=== PATIENT | female | born 1955 | race Caucasian/White ===

== ENCOUNTER 2016-10-08 14:05 | Emergency (ER) | payer SELFPAY ==
[~2016-10-08] VITALS: Ht 175.3 cm; Wt 72.0 kg
[~2016-10-08 14:05] MED LIST: ENOX40P SQ; OXYC-360 PO
[2016-10-08 14:21] VITALS: BP 131/72; PULSE 74; RESP 16; TEMP 98.5; O2SAT 98
[2016-10-08] MEDS ORDERED: SODIUM CHLOR 0.9% 1000 ML INJ 1,000 ML IV SCH (14:36)
--- NOTE | 2016-10-08 14:44 | PD ---
HPI Chief Complaint: GI Complaint Time Seen by Provider: 14:26 Travel History International Travel<30 days: No Contact w/Intl Traveler<30days: No Traveled to known affect area: No History of Present Illness HPI The patient is a 61-year-old female who presents emergency department for diarrhea and weight loss. The patient states in May she waited 186, today she waited 158 pounds. The patient states over the last month she's had diarrhea which she describes as loose, watery, brown, with one episode of bright red blood on toilet paper earlier today. She denies any nausea or vomiting, does note a change in diet secondary to her diarrhea. The patient denies any significant abdominal pain or cramping. The patient does have a history tobacco use, but denies any chronic cough or shortness of breath. The patient denies any previous history of cancer. The patient does not currently have a primary physician. The patient's symptoms are moderate without any known alleviating or exacerbating factors. She denies any history of C. difficile. The patient denies any recent antibiotic use. The patient denies any recent international travel. PFSH Past Medical History Arthritis: Yes Autoimmune Disease: No Depression: Yes Cancer: No Cardiovascular Problems: No Diabetes: No Diminished Hearing: No Endocrine: No Gastrointestinal Disorders: Yes Genitourinary: No Hiatal Hernia: Yes Musculoskeletal: Yes Neurologic: Yes Respiratory: No ?: Not Past Surgical History Gynecologic Surgery: Yes (TUBAL LIGATION) Other Surgery: Yes Social History Alcohol Use: Yes (DAILY) Tobacco Use: Yes (8 CIGS PER DAY) Substance Use: No Allergies-Medications (Allergen,Severity, Reaction): Coded Allergies: Sulfa (Verified Allergy, Severe, RASH, 10/08/16) Tramadol (Verified Adverse Reaction, Severe, Headache, 10/08/16) Reported Meds & Prescriptions Reported Meds & Active Scripts Active No Active Prescriptions or Reported Medications Review of Systems Except as stated in HPI: all other systems reviewed are Neg General / Constitutional: Positive: Weight Loss, No: Fever Cardiovascular: No: Chest Pain or Discomfort Respiratory: No: Shortness of Breath Gastrointestinal: Positive: Diarrhea, No: Nausea, Vomiting, Abdominal Pain Musculoskeletal: No: Myalgias, Weakness Skin: No Rash Neurologic: No: Weakness, Dizziness Physical Exam Narrative GENERAL: Awake, alert, pleasant 61-year-old female who appears her stated age and is in no acute respiratory distress. SKIN: Warm and dry. HEAD: Atraumatic. Normocephalic. EYES: Pupils equal and round. No scleral icterus. No injection or drainage. ENT: No nasal bleeding or discharge. Mucous membranes pink and moist. NECK: Trachea midline. No JVD. CARDIOVASCULAR: Regular rate and rhythm. No murmur appreciated. RESPIRATORY: No accessory muscle use. Clear to auscultation. Breath sounds equal bilaterally. GASTROINTESTINAL: Abdomen soft, non-tender, nondistended. No rebound tenderness. Rectal: The exam was performed in the presence of a female nurse. External examination reveals no hemorrhoids or visible fissures. Digital exam reveals no gross blood. Guaiac negative. MUSCULOSKELETAL: No obvious deformities. No clubbing. No cyanosis. No edema. NEUROLOGICAL: Awake and alert. No obvious cranial nerve deficits. Motor grossly within normal limits. Normal speech. PSYCHIATRIC: Appropriate mood and affect; insight and judgment normal. Data Data Last Documented VS Vital Signs Date Time Temp Pulse Resp B/P Pulse Ox O2 Delivery O2 Flow Rate FiO2 10/08/16 15:34 72 15 132/68 10/08/16 14:45 98 Room Air 10/08/16 14:21 98.5 Orders Complete Blood Count With Diff (10/08/16 14:36) Comprehensive Metabolic Panel (10/08/16 14:36) Lipase (10/08/16 14:36) Ct Abd/Pel W/O Iv Contrast (10/08/16 14:36) Iv Access Insert/Monitor (10/08/16 14:36) Ecg Monitoring (10/08/16 14:36) Oximetry (10/08/16 14:36) Sodium Chlor 0.9% 1000 Ml Inj (Ns 1000 M (10/08/16 14:36) Sodium Chloride 0.9% Flush (Ns Flush) (10/08/16 14:45) Chest, Single Ap (10/08/16 14:36) Labs Laboratory Tests Test 10/08/16 14:40 White Blood Count 5.3 TH/MM3 Red Blood Count 4.33 MIL/MM3 Hemoglobin 13.0 GM/DL Hematocrit 37.8 % Mean Corpuscular Volume 87.3 FL Mean Corpuscular Hemoglobin 30.1 PG Mean Corpuscular Hemoglobin 34.5 % Concent Red Cell Distribution Width 12.1 % Platelet Count 337 TH/MM3 Mean Platelet Volume 7.0 FL Neutrophils (%) (Auto) 58.4 % Lymphocytes (%) (Auto) 28.6 % Monocytes (%) (Auto) 10.5 % Eosinophils (%) (Auto) 1.9 % Basophils (%) (Auto) 0.6 % Neutrophils # (Auto) 3.1 TH/MM3 Lymphocytes # (Auto) 1.5 TH/MM3 Monocytes # (Auto) 0.6 TH/MM3 Eosinophils # (Auto) 0.1 TH/MM3 Basophils # (Auto) 0.0 TH/MM3 CBC Comment DIFF FINAL Differential Comment Sodium Level 138 MEQ/L Potassium Level 3.6 MEQ/L Chloride Level 102 MEQ/L Carbon Dioxide Level 29.0 MEQ/L Anion Gap 7 MEQ/L Blood Urea Nitrogen 9 MG/DL Creatinine 0.75 MG/DL Estimat Glomerular Filtration 79 ML/MIN Rate Random Glucose 92 MG/DL Calcium Level 9.5 MG/DL Total Bilirubin 0.2 MG/DL Aspartate Amino Transf 16 U/L (AST/SGOT) Alanine Aminotransferase 27 U/L (ALT/SGPT) Alkaline Phosphatase 51 U/L Total Protein 7.2 GM/DL Albumin 3.7 GM/DL Lipase 97 U/L [facility] Medical Decision Making Medical Screen Exam Complete: Yes Emergency Medical Condition: Yes Medical Record Reviewed: Yes Interpretation(s) Laboratory Tests Test 10/08/16 14:40 White Blood Count 5.3 TH/MM3 Red Blood Count 4.33 MIL/MM3 Hemoglobin 13.0 GM/DL Hematocrit 37.8 % Mean Corpuscular Volume 87.3 FL Mean Corpuscular Hemoglobin 30.1 PG Mean Corpuscular Hemoglobin 34.5 % Concent Red Cell Distribution Width 12.1 % Platelet Count 337 TH/MM3 Mean Platelet Volume 7.0 FL Neutrophils (%) (Auto) 58.4 % Lymphocytes (%) (Auto) 28.6 % Monocytes (%) (Auto) 10.5 % Eosinophils (%) (Auto) 1.9 % Basophils (%) (Auto) 0.6 % Neutrophils # (Auto) 3.1 TH/MM3 Lymphocytes # (Auto) 1.5 TH/MM3 Monocytes # (Auto) 0.6 TH/MM3 Eosinophils # (Auto) 0.1 TH/MM3 Basophils # (Auto) 0.0 TH/MM3 CBC Comment DIFF FINAL Differential Comment Sodium Level 138 MEQ/L Potassium Level 3.6 MEQ/L Chloride Level 102 MEQ/L Carbon Dioxide Level 29.0 MEQ/L Anion Gap 7 MEQ/L Blood Urea Nitrogen 9 MG/DL Creatinine 0.75 MG/DL Estimat Glomerular Filtration 79 ML/MIN Rate Random Glucose 92 MG/DL Calcium Level 9.5 MG/DL Total Bilirubin 0.2 MG/DL Aspartate Amino Transf 16 U/L (AST/SGOT) Alanine Aminotransferase 27 U/L (ALT/SGPT) Alkaline Phosphatase 51 U/L Total Protein 7.2 GM/DL Albumin 3.7 GM/DL Lipase 97 U/L CT of the abdomen and pelvis reveals small fat containing umbilical hernia. Otherwise, negative noncontrast CT abdomen/pelvis. Differential Diagnosis Differential diagnosis includes colitis, enteritis, colon cancer, pancreatic cancer, interval bowel syndrome, lung cancer, dehydration. Narrative Course IV was established, labs are drawn and sent, and the patient was placed on cardiac telemetry monitoring and continuous pulse oximetry monitoring. Rectal exam was performed, no gross blood, guaiac negative. CT of the abdomen and pelvis was ordered to rule out obvious mass. Laboratory evaluation is unremarkable. Chest x-rays negative. CT of the abdomen and pelvis is negative , no evidence of mass or apple core lesion. The patient is advised to follow- up with gastroenterology, she may benefit from outpatient follow-up and possible colonoscopy. Patient is stable for outpatient follow-up. [facility] Point of Care Internal Pos. & Neg. Controls: Passed Fecal Specimen Occult Blood: Negative Diagnosis Primary Impression: Diarrhea Qualified Code: R19.7 - Diarrhea, unspecified type Additional Impression: Weight loss Patient Instructions: General Instructions Additional Instructions: Please provide the patient a copy of her CT results and lab results at discharge. Follow-up with gastroenterology for outpatient follow-up and possible endoscopy/colonoscopy. Med/Other Pt SpecificInfo: No Change to Meds Scripts No Active Prescriptions or Reported Meds Disposition: 01 DISCHARGE HOME Condition: Stable Lowell Brooke MD Oct 08, 2016 14:44
[2016-10-08 14:45] VITALS: O2SAT 98
[2016-10-08] MEDS ORDERED: SODIUM CHLORIDE 0.9% FLUSH 5 ML FLUSH IVF PRN (14:45)
[2016-10-08 14:46] LABS: AUTOMATED NEUTROPHIL # 3.1 TH/MM3 (1.8-7.7); BASOPHIL % 0.6 % (0.0-2.0); EOSINOPHIL # 0.1 TH/MM3 (0-0.4); EOSINOPHIL % 1.9 % (0.0-4.0); HEMATOCRIT 37.8 % (35.0-46.0); HEMO FLAGS DIFF FINAL; LYMPH % 28.6 % (9.0-44.0); LYMPHOCYTE # 1.5 TH/MM3 (1.0-4.8); MEAN CELL VOLUME 87.3 FL (80.0-100.0); MEAN CORPUSCULAR HEMOGLOBIN 30.1 PG (27.0-34.0); MEAN CORPUSCULAR HGB CONC 34.5 % (32.0-36.0); MONO % 10.5 % (0.0-8.0); NEUT % 58.4 % (16.0-70.0); PLATELET COUNT 337 TH/MM3 (150-450); RED BLOOD COUNT 4.33 MIL/MM3 (4.00-5.30); RED CELL DISTRIBUTION WIDTH 12.1 % (11.6-17.2); WHITE BLOOD COUNT 5.3 TH/MM3 (4.0-11.0)
[2016-10-08 14:55] LABS: CHLORIDE 102 MEQ/L (98-107); POTASSIUM 3.6 MEQ/L (3.5-5.1); SODIUM (NA) 138 MEQ/L (136-145)
[2016-10-08 14:59] LABS: ANION GAP 7 MEQ/L (5-15); BLOOD UREA NITROGEN 9 MG/DL (7-18)
[2016-10-08 15:01] LABS: ALT (GPT) 27 U/L (10-53); AST (GOT) 16 U/L (15-37)
[2016-10-08 15:02] LABS: GLOMERULAR FILTRATION RATE 79 ML/MIN (>89)
[2016-10-08 15:03] LABS: TOTAL BILIRUBIN ADULT 0.2 MG/DL (0.2-1.0)
[2016-10-08 15:04] LABS: ALKALINE PHOSPHATASE 51 U/L (45-117)
--- NOTE | 2016-10-08 15:10 | RADHPO ---
EXAM DATE/TIME: 10/08/2016 14:48 [facility] COMPARISON: No previous studies available for comparison. INDICATIONS : Fever, weight loss, diarrhea, cough MEDICAL HISTORY : None. SURGICAL HISTORY : None. ENCOUNTER: Initial ACUITY: 1 month PAIN SCORE: 0/10 LOCATION: Bilateral chest FINDINGS: A single view of the chest demonstrates the lungs to be symmetrically aerated without evidence of mas s, infiltrate or effusion. The cardiomediastinal contours are unremarkable. Osseous structures are intact. CONCLUSION: Normal examination for a patient of this age. Oswaldo Espinosa MD on October 08, 2016 at 15:08 Board Certified Radiologist. This report was verified electronically.
[2016-10-08 15:34] VITALS: BP 132/68; PULSE 72; RESP 15
--- NOTE | 2016-10-08 15:39 | RADHPO ---
EXAM DATE/TIME: 10/08/2016 15:03 [facility] COMPARISON: No previous studies available for comparison. INDICATIONS : Diarrhea and weight loss for one month. ORAL CONTRAST: No oral contrast ingested. RADIATION DOSE: 8.45 CTDIvol (mGy) MEDICAL HISTORY : Hernia, hiatal. SURGICAL HISTORY : Tubal ligation. ENCOUNTER: Initial ACUITY: 1 day PAIN SCALE: 0/10 LOCATION: Bilateral abdomen TECHNIQUE: Volumetric scanning of the abdomen and pelvis was performed. Using automated exposure control and ad justment of the mA and/or kV according to patient size, radiation dose was kept as low as reasonably achievable to obtain optimal diagnostic quality images. FINDINGS: LOWER LUNGS: The visualized lower lungs are clear. LIVER: Homogeneous density without lesion for noncontrast technique. There is no dilation of the biliary tr ee. No calcified gallstones. SPLEEN: Normal size without lesion. PANCREAS: Within normal limits. KIDNEYS: Normal in size and shape. There is no mass, stone, or hydronephrosis. ADRENAL GLANDS: Within normal limits. VASCULAR: There is no aortic aneurysm. BOWEL/MESENTERY: The stomach, small bowel, and colon demonstrate no acute abnormality. There is no free intraperitone al air or fluid. ABDOMINAL WALL: There is a small umbilical hernia which contains fat. RETROPERITONEUM: There is no lymphadenopathy. BLADDER: No wall thickening or mass. REPRODUCTIVE: Within normal limits. INGUINAL: There is no lymphadenopathy or hernia. MUSCULOSKELETAL: Mild curvature of the lumbar spine convex towards the left. CONCLUSION: Small fat-containing umbilical hernia. Otherwise negative noncontrast CT abdomen/pelvis. Wili Benton MD on October 08, 2016 at 15:35 Board Certified Radiologist. This report was verified electronically.
== END 2016-10-08 15:59 | disposition home or self-care (01) ==
LOC: PHED 14:05
DX: R19.7 Diarrhea, unspecified (principal); R63.4 Abnormal weight loss; Z72.0 Tobacco use
CPT/HCPCS: 71010; 74176; 80053; 83690; 85025; 96360; 99284; J7030

== ENCOUNTER 2017-08-04 13:27 | Emergency (ER) | payer SELFPAY ==
[~2017-08-04] VITALS: Ht 175.3 cm; Wt 65.0 kg
[2017-08-04 13:35] VITALS: BP 140/89; PULSE 88; RESP 18; TEMP 98.6; O2SAT 97
[2017-08-04] MEDS ORDERED: CLIN300C5 PO (13:54)
[2017-08-04] MEDS ORDERED: MUPI2%T TOPICAL (13:54)
--- NOTE | 2017-08-04 13:54 | PD ---
HPI Chief Complaint: Skin Problem Time Seen by Provider: 13:44 Travel History International Travel<30 days: No Contact w/Intl Traveler<30days: No Traveled to known affect area: No History of Present Illness HPI This is a 61-year-old female who presents to the emergency department with a wound on her left leg, constant, moderate severity not healing that's been present for over a month. She denies any fevers or chills. She did complete a course of Keflex and was prescribed mupirocin ointment the on the bottle it says is not indicated for open wounds. She does not have a history of diabetes. PFSH Past Medical History Arthritis: Yes Autoimmune Disease: No Depression: Yes Cancer: No Cardiovascular Problems: No Diabetes: No Diminished Hearing: No Endocrine: No Gastrointestinal Disorders: Yes Genitourinary: No Hiatal Hernia: Yes Musculoskeletal: Yes Neurologic: Yes Respiratory: No Influenza Vaccination: No ?: Not Past Surgical History Gynecologic Surgery: Yes (TUBAL LIGATION) Other Surgery: Yes Social History Alcohol Use: Yes (DAILY) Tobacco Use: Yes (8 CIGS PER DAY) Substance Use: No Allergies-Medications (Allergen,Severity, Reaction): Coded Allergies: Sulfa (Sulfonamide Antibiotics) (Unverified Allergy, Severe, RASH, ) tramadol (Unverified Adverse Reaction, Severe, Headache, 08/04/17) Reported Meds & Prescriptions Reported Meds & Active Scripts Active No Active Prescriptions or Reported Medications Review of Systems General / Constitutional: No: Fever, Chills Respiratory: No: Shortness of Breath Physical Exam Narrative GENERAL: Well-appearing, no acute distress, nontoxic SKIN: 3 x 2 cm ulceration on the anterior distal tibia with some yellow purulent drainage and a 10 cm surrounding area of scaly erythematous scan with no warmth or induration HEAD: Atraumatic. Normocephalic. ENT: No nasal bleeding or discharge. Moist mucous membranes MUSCULOSKELETAL: No obvious deformities. No clubbing. No cyanosis. No edema. NEUROLOGICAL: Awake and alert. No obvious cranial nerve deficits. Motor grossly within normal limits. Normal speech. PSYCHIATRIC: Appropriate mood and affect; insight and judgment normal. Data Data Last Documented VS Vital Signs Date Time Temp Pulse Resp B/P (MAP) Pulse Ox O2 Delivery O2 Flow Rate FiO2 08/04/17 13:35 98.6 88 18 140/89 (106) 97 [facility] Medical Decision Making Medical Screen Exam Complete: Yes Emergency Medical Condition: Yes Differential Diagnosis Wound, abscess, cellulitis Narrative Course This is a 61-year-old female who presents to the emergency department with a poorly healing wound on her distal tibia. She has no systemic evidence of infection. I think she is appropriate for outpatient antibiotic therapy and she was instructed on wound care. Patient will be prescribed clindamycin as she feels Keflex and I suspect this may be MRSA. Otherwise she is nontoxic appearing and I don't think she requires admission. Diagnosis Primary Impression: Wound infection Patient Instructions: General Instructions Additional Instructions: Wash your wound twice a day with warm soap and water. If you develop fever, increasing redness, warmth, or spreading of your infection , or severe pain return to the emergency department immediately as you may require antibiotics through your IV. Complete your course of antibiotics as prescribed. Med/Other Pt SpecificInfo: Prescription(s) given Scripts Mupirocin Topical (Bactroban Topical) 22 Gm Cream 1 APPLIC TOPICAL TID for Mgmt Bacterial Infection, #1 TUBE 0 Refills Prov: Nguyen Ramachandran MD 08/04/17 Clindamycin (Clindamycin) 300 Mg Cap 300 MG PO TID for Infection for 10 Days, #30 CAP 0 Refills Prov: Nguyen Ramachandran MD 08/04/17 Disposition: 01 DISCHARGE HOME Condition: Stable Nguyen Ramachandran MD Aug 04, 2017 13:54
== END 2017-08-04 14:20 | disposition home or self-care (01) ==
LOC: PHEFT 13:27
DX: L97.829 Non-pressure chronic ulcer of other part of left lower leg with unspecified severity (principal); L08.9 Local infection of the skin and subcutaneous tissue, unspecified
CPT/HCPCS: 99284

== ENCOUNTER 2017-09-06 14:00 | Emergency (ER) | payer SELFPAY ==
[~2017-09-06] VITALS: Ht 175.3 cm; Wt 64.0 kg
[~2017-09-06 14:00] MED LIST changes: +CLIN300C5 PO; -ENOX40P SQ; +MUPI2%T TOPICAL; -OXYC-360 PO
[2017-09-06 14:24] VITALS: BP 192/91; PULSE 87; RESP 16; TEMP 99; O2SAT 99
[2017-09-06] MEDS ORDERED: CLIN300C5 PO (15:36)
--- NOTE | 2017-09-06 15:37 | PD ---
HPI Chief Complaint: Wound/Suture/Staple Re-Check Time Seen by Provider: 15:24 Travel History International Travel<30 days: No Contact w/Intl Traveler<30days: No Traveled to known affect area: No History of Present Illness HPI 62-year-old female here with recurrent wounds to the left lower extremity. She denies fever or chills. She reports the wound occurred originally in May 2017. She has been treated multiple times for localized wound infection. She denies history of diabetes or peripheral vascular disease. She reports normal sensation in the extremity. Symptom severity is moderate. No aggravating or alleviating factors. PFSH Past Medical History Arthritis: Yes Autoimmune Disease: No Depression: Yes Cancer: No Cardiovascular Problems: No Diabetes: No Diminished Hearing: No Endocrine: No Gastrointestinal Disorders: Yes Genitourinary: No Hiatal Hernia: Yes Implanted Vascular Access Dvce: No Musculoskeletal: Yes Neurologic: Yes Respiratory: No Tetanus Vaccination: Unknown ?: Not Past Surgical History Gynecologic Surgery: Yes (TUBAL LIGATION) Other Surgery: Yes Social History Alcohol Use: Yes (DAILY) Tobacco Use: Yes (8 CIGS PER DAY) Substance Use: No Allergies-Medications (Allergen,Severity, Reaction): Coded Allergies: Sulfa (Sulfonamide Antibiotics) (Unverified Allergy, Severe, RASH, ) tramadol (Unverified Adverse Reaction, Severe, Headache, 09/06/17) Reported Meds & Prescriptions Reported Meds & Active Scripts Active No Active Prescriptions or Reported Medications Review of Systems Except as stated in HPI: all other systems reviewed are Neg General / Constitutional: No: Fever Physical Exam Narrative GENERAL: Alert well-appearing female SKIN: 5X5 cm area to the left anterior garcía with a centralized scab and surrounding erythema. HEAD: Normocephalic. EYES: No scleral icterus. No injection or drainage. NECK: Supple, trachea midline. No JVD or lymphadenopathy. CARDIOVASCULAR: Regular rate and rhythm without murmurs, gallops, or rubs. RESPIRATORY: Breath sounds equal bilaterally. No accessory muscle use. GASTROINTESTINAL: Abdomen soft, non-tender, nondistended. MUSCULOSKELETAL: No cyanosis, or edema. See skin noted above. Left lower extremity has normal sensation. 2+ dorsal pedis pulse. Brisk cap refill. BACK: Nontender without obvious deformity. No CVA tenderness. Data Data Last Documented VS Vital Signs Date Time Temp Pulse Resp B/P (MAP) Pulse Ox O2 Delivery O2 Flow Rate FiO2 09/06/17 14:24 99.0 87 16 192/91 (124) 99 MDM Medical Decision Making Medical Screen Exam Complete: Yes Emergency Medical Condition: Yes Differential Diagnosis Delayed wound healing, cellulitis, wound infection Narrative Course 62-year-old female with a recurrent wounds were left lower extremity. The extremity is neurovascular intact. 2+ dorsal pedis pulse. The wound does appear infected. She reports previous improvement with clindamycin. Patient be put back on clindamycin and follow these up in clinic. Diagnosis Primary Impression: Wound infection Referrals: Primary Care Physician Additional Instructions: Take the antibiotics as prescribed. Follow-up with the [facility]. Continue wound care as you have been doing Scripts Clindamycin (Clindamycin) 300 Mg Cap 300 MG PO Q6H for Infection for 7 Days, #28 CAP 0 Refills Prov: Ana Chris 09/06/17 Disposition: 01 DISCHARGE HOME Condition: Stable Ana Chris Sep 06, 2017 15:37
== END 2017-09-06 15:54 | disposition home or self-care (01) ==
LOC: PHEFT 14:00
DX: L08.9 Local infection of the skin and subcutaneous tissue, unspecified (principal); M19.90 Unspecified osteoarthritis, unspecified site; F32.9 Major depressive disorder, single episode, unspecified; F17.210 Nicotine dependence, cigarettes, uncomplicated; Z88.2 Allergy status to sulfonamides; Z88.5 Allergy status to narcotic agent
CPT/HCPCS: 99283

== ENCOUNTER 2017-09-21 11:52 | Emergency (ER) | payer SELFPAY ==
[~2017-09-21] VITALS: Ht 175.3 cm; Wt 52.2 kg
[~2017-09-21 11:52] MED LIST changes: -MUPI2%T TOPICAL
[2017-09-21 12:16] VITALS: BP 127/73; PULSE 79; RESP 18; TEMP 98.3; O2SAT 98
--- NOTE | 2017-09-21 14:16 | PD ---
HPI Chief Complaint: Skin Problem Time Seen by Provider: 13:51 Travel History International Travel<30 days: No Contact w/Intl Traveler<30days: No Traveled to known affect area: No History of Present Illness HPI Patient comes back to emergency department for wound recheck. Patient reports that she took all antibiotics as previously prescribed and continues to improve. Patient reports she is continuing to use [id number] Neosporin. Denies any pain with this or radiation of pain. Denies fevers. Patient was concerned states it is very itchy. Denies any numbness or tingling. Denies anything making it better or worse. Patient also states she needs medical clearance to go back to work. PFSH Past Medical History Arthritis: Yes Autoimmune Disease: No Depression: Yes Cancer: No Cardiovascular Problems: No Diabetes: No Diminished Hearing: No Endocrine: No Gastrointestinal Disorders: Yes Genitourinary: No Hiatal Hernia: Yes Implanted Vascular Access Dvce: No Musculoskeletal: Yes Neurologic: Yes Respiratory: No Tetanus Vaccination: Unknown Influenza Vaccination: No ?: Not Past Surgical History Gynecologic Surgery: Yes (TUBAL LIGATION) Other Surgery: Yes Social History Alcohol Use: Yes (DAILY) Tobacco Use: Yes (8 CIGS PER DAY) Substance Use: No Allergies-Medications (Allergen,Severity, Reaction): Coded Allergies: Sulfa (Sulfonamide Antibiotics) (Verified Allergy, Severe, RASH, 09/21/17) tramadol (Verified Adverse Reaction, Severe, Headache, 09/21/17) Reported Meds & Prescriptions Reported Meds & Active Scripts Active Review of Systems Except as stated in HPI: all other systems reviewed are Neg Physical Exam Narrative GENERAL: Well-developed, well nourished, in no acute distress, and non-ill appearing. SKIN: Small healing wound noted over the anterior aspect of the left distal garcía. Mild erythematous. Afebrile without drainage or crepitus. Nonindurated. HEAD: Atraumatic. Normocephalic. EYES: Pupils equal and round. EOMI. No scleral icterus. No injection or drainage. ENT: No nasal bleeding or discharge. Mucous membranes pink and moist. NECK: Trachea midline. Supple. No nuclear rigidity. RESPIRATORY: No accessory muscle use. No respiratory distress. MUSCULOSKELETAL: No obvious deformities. No clubbing. No cyanosis. No edema. Full range of motion. NEUROLOGICAL: Awake and alert. No obvious cranial nerve deficits. Motor grossly within normal limits. Normal speech. PSYCHIATRIC: Appropriate mood and affect; insight and judgment normal. Data Data Last Documented VS Vital Signs Date Time Temp Pulse Resp B/P (MAP) Pulse Ox O2 Delivery O2 Flow Rate FiO2 09/21/17 12:16 98.3 79 18 127/73 (91) 98 Orders Orders Ed Discharge Order (09/21/17 14:17) MDM Medical Decision Making Medical Screen Exam Complete: Yes Emergency Medical Condition: Yes Differential Diagnosis Wound check, wound infection, slow healing wound, cellulitis Narrative Course Patient in no obvious distress upon re-evaluation. Any questions/concerns in reference to patient diagnosis/condition discussed and clarified prior to patient's discharge. Reinforced sheer importance of close follow up with patient 's primary physician or primary care clinic. Instructed patient to return to ED immediately, if symptoms return/worsen. Patient showed understanding of above instructions. Further instructions and recommendations were detailed in discharge paperwork. Patient ambulated without difficulty out of ED at discharge. Diagnosis Primary Impression: Encounter for wound re-check Referrals: [facility] Patient Instructions: Chronic Wounds (ED), General Instructions Departure Forms: Work Release Enter return to work date: Sep 21, 2017 Additional Instructions: Follow-up with your primary care physician and/or wound care next week for reevaluation. Keep wound dry and clean as possible using soap and water. Use Neosporin to promote healing. Return to the emergency department if symptoms get worse. Disposition: 01 DISCHARGE HOME Condition: Stable Yassine Akins Sep 21, 2017 14:16
== END 2017-09-21 14:42 | disposition home or self-care (01) ==
LOC: PHEFT 11:52
DX: L98.9 Disorder of the skin and subcutaneous tissue, unspecified (principal); F17.210 Nicotine dependence, cigarettes, uncomplicated
CPT/HCPCS: 99281

== ENCOUNTER 2018-01-22 13:49 | Emergency (ER) | payer SELFPAY ==
[~2018-01-22] VITALS: Ht 175.3 cm; Wt 62.0 kg
[2018-01-22 14:57] VITALS: BP 165/79; PULSE 73; RESP 16; TEMP 98.3; O2SAT 98
[2018-01-22] MEDS ORDERED: [UNRECOGNIZED DRUG - CODE] (15:13)
[2018-01-22] MEDS ORDERED: IBUP1TAB7 PO (15:13)
[2018-01-22] MEDS ORDERED: DIPH25CA PO (15:13)
[2018-01-22 15:14] VITALS: BP 156/82; PULSE 70; RESP 18; O2SAT 97
--- NOTE | 2018-01-22 15:36 | PD ---
HPI Chief Complaint: Skin Problem Time Seen by Provider: 15:34 Travel History International Travel<30 days: No Contact w/Intl Traveler<30days: No Traveled to known affect area: No History of Present Illness HPI Patient comes in with 2 separate complaints. She was follow-up with [facility] for right lower extremity wound which she has had chronically present since last May. She has been referred to wound care. However she comes in for evaluation of her right upper extremity and part of her face that have started to form redness, not raised, but flat red spots that are itchy and after she scratches them the skin becomes thickened. This has been ongoing for the past week or so patient has tried to put on different types of creams including lidocaine cream and Benadryl cream over but it does not seem to resolve her rash, it only helps to decrease the amount of itching. Patient denies any alleviating or aggravating factors. Patient denies any associated factors such as fever, headache, visual changes, neck pain, chest pain, back pain, flank pain, abdominal pain, nausea vomiting or diarrhea. States allergy to sulfa and tramadol Past medical history he has a history of corrective lens use, false teeth, GI hiatal hernia, tubal ligation, depression, also orthopedic surgeries such as right wrist surgery and right knee arthroscopy PFSH Past Medical History Arthritis: Yes Autoimmune Disease: No Depression: Yes Cancer: No Cardiovascular Problems: No Diabetes: No Diminished Hearing: No Endocrine: No Gastrointestinal Disorders: Yes Genitourinary: No Hiatal Hernia: Yes Implanted Vascular Access Dvce: No Musculoskeletal: Yes Neurologic: Yes Respiratory: No Tetanus Vaccination: Unknown Influenza Vaccination: No Tubal Ligation: Yes Past Surgical History Gynecologic Surgery: Yes (TUBAL LIGATION) Other Surgery: Yes Social History Alcohol Use: Yes (SOCIALLY) Tobacco Use: Yes (8 CIGS PER DAY) Substance Use: No Allergies-Medications (Allergen,Severity, Reaction): Coded Allergies: Sulfa (Sulfonamide Antibiotics) (Verified Allergy, Severe, RASH, 01/22/18) tramadol (Verified Adverse Reaction, Severe, Headache, 01/22/18) Reported Meds & Prescriptions Reported Meds & Active Scripts Active Doxycycline Hyclate 100 Mg Cap 100 Mg PO BID Nystatin-Triamcinolone 100,000-0.1 Unit/Gm Oint 1 Applic TOPICAL Q12HR Reported Diphenhydramine (Diphenhydramine HCl) 25 Mg Cap 50 Mg PO Q4H PRN Daytime Sinus Softgel (Phenylephrine HCl/Acetaminophn) 5 Mg-325 Mg Capsule Ibuprofen 800 Mg Tab 800 Mg PO Q8H PRN Review of Systems General / Constitutional: No: Fever Eyes: No: Visual changes HENT: No: Headaches Cardiovascular: No: Chest Pain or Discomfort Respiratory: No: Shortness of Breath Gastrointestinal: No: Abdominal Pain Genitourinary: No: Dysuria Musculoskeletal: No: Pain Skin: Positive Rash Neurologic: No: Weakness Psychiatric: No: Depression Endocrine: No: Polydipsia Hematologic/Lymphatic: No: Easy Bruising Physical Exam Narrative GENERAL: SKIN: Warm and dry. Patient's right upper extremity sparing the hands and intertriginous regions, however covering the forearm, with excoriation sarah, and different stages of healing. Erythematous and plaque-like but without any silvery dry areas. Negative Nikolsky's HEAD: Atraumatic. Normocephalic. EYES: Pupils equal and round. No scleral icterus. No injection or drainage. ENT: No nasal bleeding or discharge. Mucous membranes pink and moist. NECK: Trachea midline. No JVD. CARDIOVASCULAR: Regular rate and rhythm. RESPIRATORY: No accessory muscle use. Clear to auscultation. Breath sounds equal bilaterally. GASTROINTESTINAL: Abdomen soft, non-tender, nondistended. MUSCULOSKELETAL: Extremities without clubbing, cyanosis, or edema. No obvious deformities. Anterior left lower extremity from mid tib-fib extending down to the ankle the patient has a erythematous, exudative clear serosanguineous appearing discharge, no warmth to touch, no induration, no fluctuance, no streaking. This area looks consistent with chronic ulcerative skin changes. NEUROLOGICAL: Awake and alert. No obvious cranial nerve deficits. Motor grossly within normal limits. Five out of 5 muscle strength in the arms and legs. Normal speech. PSYCHIATRIC: Appropriate mood and affect; insight and judgment normal. Data Data Last Documented VS Vital Signs Date Time Temp Pulse Resp B/P (MAP) Pulse Ox O2 Delivery O2 Flow Rate FiO2 01/22/18 17:13 78 18 166/86 (112) 100 01/22/18 15:14 Room Air 01/22/18 14:57 98.3 Orders Orders Clindamycin Inj (Cleocin Inj) (01/22/18 16:00) Ed Discharge Order (01/22/18 16:34) [facility] Medical Decision Making Medical Screen Exam Complete: Yes Emergency Medical Condition: Yes Medical Record Reviewed: Yes Differential Diagnosis Cellulitis versus abscess versus psoriasis versus dermatophytosis versus zoster Narrative Course Clinically the patient did not have any abscess or psoriasis. However the patient did have cellulitis on her left lower extremity, which the patient will also be referred to wound center to have further evaluation and care. Patient's right forearm is consistent with a dermatophytosis for which the patient will be given ointment I have antifungal and steroid combination Patient is recommended to follow-up with dermatology Diagnosis Primary Impression: Left lower extremity cellulitis Additional Impression: Right forearm dermatophytosis Referrals: [facility] Advanced Wound Healing Patient Instructions: Cellulitis (ED), General Instructions Scripts Doxycycline Hyclate (Doxycycline Hyclate) 100 Mg Cap 100 MG PO BID for Infection, #20 CAP 0 Refills Prov: Roland Sifuentes MD 01/22/18 Nystatin-Triamcinolone (Nystatin-Triamcinolone) 100,000-0.1 Unit/Gm Oint 1 APPLIC TOPICAL Q12HR for Infection, #60 GM 2 Refills Prov: Roland Sifuentes MD 01/22/18 Disposition: 01 DISCHARGE HOME Condition: Stable Roland Sifuentes MD January 22, 2018 15:36
[2018-01-22] MEDS ORDERED: CLINDAMYCIN PHOS 300 MG/2 ML VIAL IM ONE (16:00)
[2018-01-22] MEDS ORDERED: NYST1OIN TOPICAL (16:02)
[2018-01-22] MEDS ORDERED: DOXY100C PO (16:02)
[2018-01-22 17:13] VITALS: BP 166/86
== END 2018-01-22 17:13 | disposition home or self-care (01) ==
LOC: NEPD 13:49
DX: L03.116 Cellulitis of left lower limb (principal); B35.9 Dermatophytosis, unspecified; F17.210 Nicotine dependence, cigarettes, uncomplicated
CPT/HCPCS: 96372